=== PATIENT | male | born 1980 | race Caucasian/White ===

== ENCOUNTER 2020-10-12 17:38 | Emergency (ER) | payer BC, OTHER ==
[~2020-10-12] VITALS: Ht 180.3 cm; Wt 115.1 kg
[2020-10-12] MEDS ORDERED: NAPR-514 PO (18:38)
[2020-10-12] MEDS ORDERED: CYCL-331 PO (18:38)
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
[2020-10-12 18:59] VITALS: BP 136/104
== END 2020-10-12 19:01 | disposition home or self-care (01) ==
LOC: ER 17:38
DX: S00.03XA Contusion of scalp, initial encounter (principal); R51.9 Headache, unspecified; R60.0 Localized edema; J45.909 Unspecified asthma, uncomplicated; I10 Essential (primary) hypertension; Z88.0 Allergy status to penicillin; Z88.2 Allergy status to sulfonamides; V49.9XXA Car occupant (driver) (passenger) injured in unspecified traffic accident, initial encounter; Y93.89 Activity, other specified; Y92.413 State road as the place of occurrence of the external cause; Y99.8 Other external cause status
CPT/HCPCS: 99283